=== PATIENT | male | born 1955 | race African-American/Black ===

== ENCOUNTER 2018-12-27 15:04 | Inpatient (IN) | payer OTHER ==
[2018-12-27 15:44] VITALS: BMI 25.2
--- NOTE | 2018-12-27 16:53 | HP ---
COWS - Scale Resting Pulse: 0= [place] 80 or Below Sweatin= Chills/Flushing Restless Observation: 5= Unable to Sit Still Pupil Size: 0= Normal to Room Light Bone or Joint Aches: 1= Mild Discomfort Runny Nose/ Eye Tearin= Runny Nose/Eyes GI Upset > 30mins: 2= Nausea/Diarrhea Tremor Observation: 0= None Yawning Observation: 1= 1-2x During Session Anxiety or Irritability: 2=Irritable/Anxious Goose Flesh Skin: 0=Smooth Skin COWS Score: 14 CIWA Score Nausea/Vomitin Muscle Tremors: 2 Anxiety: 4-Mod. Anxious/Guarded Agitation: 4-Moderately Restless Paroxysmal Sweats: No Perspiration Orientation: 0-Oriented Tacttile Disturbances: 0-None Auditory Disturbances: 0-None Visual Disturbances: 0-None Headache: 0-None Present CIWA-Ar Total Score: 13 - Admission Criteria OASAS Guidelines: Admission for Medically Managed Detox: Requires at least one of the followin. CIWA greater than 12 2. Seizures within the past 24 hours 3. Delirium tremens within the past 24 hours 4. Hallucinations within the past 24 hours 5. Acute intervention needed for co occurring medical disorder 6. Acute intervention needed for co occurring psychiatric disorder 7. Severe withdrawal that cannot be handled at a lower level of care (continued vomiting, continued diarrhea, abnormal vital signs) requiring intravenous medication and/or fluids 8. Admission [facility] Allergies/Adverse Reactions: Allergies Allergy/AdvReac Type Severity Reaction Status Date / Time No Known Allergies Allergy Verified 12/27/18 15:36 History of Present Illness: pt here requesting detox from heroin use , reports 10-15 bags/day since 20 years intermittently , longest sobriety " a few months " after detox , latest use yesterday , claims was referred by [facility] , prior detox x 3 , rehab x once , denies OD, denies IVDU , current symptoms as above. Reports relapse on heroin despite rx meds as below, brought in letter from prescribing MD supporting pt detox and recommendation for rehab . 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 Patient Name: Darian Calhoun Date: 1955 Address: [address] [place] [address] Sex: Male Rx Written Rx Dispensed Drug Quantity Days Supply Prescriber Name 11/29/2018 11/29/2018 buprenorphine-naloxone 8-2 mg sl film 90 30 NidiaFilippo raymundo MD 10/30/2018 10/30/2018 buprenorphine-naloxone 8-2 mg sl film 90 30 NidiaFilippo MD 10/02/2018 10/02/2018 suboxone 8 mg-2 mg sl film 90 30 NidiaFilippo MD 08/31/2018 08/31/2018 suboxone 8 mg-2 mg sl film 90 30 NidiaFilippo raymundo MD 07/31/2018 07/31/2018 suboxone 8 mg-2 mg sl film 90 30 NidiaFilippo MD 06/29/2018 06/29/2018 suboxone 8 mg-2 mg sl film 90 30 NidiaFilippo MD 05/30/2018 05/30/2018 suboxone 8 mg-2 mg sl film 90 30 NidiaFilippo MD 03/30/2018 03/30/2018 suboxone 8 mg-2 mg sl film 90 30 NidiaFilippo raymundo MD 03/01/2018 03/01/2018 suboxone 8 mg-2 mg sl film 90 30 NidiaFilippo raymundo MD 02/02/2018 02/02/2018 suboxone 8 mg-2 mg sl film 90 30 NidiaFilippo MD 01/05/2018 01/05/2018 suboxone 8 mg-2 mg sl film 90 30 NidiaFilippo MD Exam Limitations: Clinical Condition - Ebola screening Have you traveled outside of the country in the last 21 days: No (N) Have you had contact with anyone from an Ebola affected area: No Do you have a fever: No - Review of Systems Constitutional: See HPI, Loss of Appetite EENT: reports: Nose Congestion, Other (myopia) Respiratory: reports: No Symptoms reported Cardiac: reports: No Symptoms Reported GI: reports: See HPI : reports: No Symptoms Reported Musculoskeletal: reports: See HPI, Back Pain Integumentary: reports: No Symptoms Reported Neuro: reports: Headache Endocrine: reports: No Symptoms Reported Psychiatric: reports: Orientated x3, Agitated, Anxious Patient History - Smoking Cessation Smoking history: Current every day smoker Have you smoked in the past 12 months: Yes Initiated information on smoking cessation: No - Substances abused Alcohol Substance route: Oral Frequency: Daily Amount used: RUM- 1PT/ 12 CANS 12OZ BEER Age of first use: 14 Date of last use: 12/26/18 Heroin Substance route: Inhalation Frequency: Daily Amount used: $10BAGS Age of first use: 38 Date of last use: 12/26/18 Family Disease History - Family Disease History Family History: Denies Admission Physical Exam S - Vital Signs Vital Signs: Vital Signs - 24 hr 12/27/18 15:35 Temperature 98.9 F Pulse Rate 50 L Respiratory 18 Rate Blood Pressure 140/80 - Physical General Appearance: Yes: Disheveled, Moderate Distress, Tremorous, Irritable, Anxious HEENTM: Yes: EOMI, Hearing grossly Normal, Normocephalic, Normal Voice, Rhinorrhea Respiratory: Yes: Chest Non-Tender, Lungs Clear, Normal Breath Sounds Neck: Yes: No masses,lesions,Nodules, Trachea in good position Cardiology: Yes: Regular Rhythm, Regular Rate, S1, S2, Bradycardia (reports @ baseline , meds verified w/ pharmacy on record .) Abdominal: Yes: Non Tender, Flat, Soft Back: Yes: Normal Inspection Musculoskeletal: Yes: Gait Steady Extremities: Yes: Non-Tender Neurological: Yes: Fully Oriented, Alert, Motor Strength 5/5 Integumentary: Yes: Warm - Diagnostic (1) Opioid dependence on agonist therapy Current Visit: Yes Status: Acute (2) Opioid dependence Current Visit: Yes Status: Acute Qualifiers: Substance use status: in withdrawal Qualified Code(s): F11.23 - Opioid dependence with withdrawal (3) Alcohol abuse Current Visit: Yes Status: Acute (4) Nicotine use disorder Current Visit: Yes Status: Chronic (5) Cocaine use disorder Current Visit: Yes Status: Chronic Inpatient Rehab Admission - Rehab Decision to Admit Inpatient rehab admission?: No
[2018-12-27] MEDS ORDERED: BISMUTH SUBSALICYLATE 524 MG/30 ML UD PO PRN (17:26)
[2018-12-27] MEDS ORDERED: MENTHOL/PHENOL 1 EACH UD MM PRN (17:26)
[2018-12-27] MEDS ORDERED: MAG HYDROX/AL HYDROX/SIMETH 30 ML UNIT-DOSE CUP PO PRN (17:26)
[2018-12-27] MEDS ORDERED: MAGNESIUM CITRATE 300 ML BOTTLE PO PRN (17:26)
[2018-12-27] MEDS ORDERED: ACETAMINOPHEN 325 MG TABLET (FP) PO PRN (17:26)
[2018-12-27] MEDS ORDERED: MAGNESIUM HYDROX 2400MG/30ML ORAL SUSPENSION 30 ML CUP PO PRN (17:26)
[2018-12-27] MEDS: cloNIDine HCL 0.1 MG TABLET PO PRN (18:28)
[2018-12-27] MEDS ORDERED: METHADONE HCL 10 MG TABLET (FOR DETOX USE ONLY) PO ONE ×2 (18:38→23:00)
[2018-12-27] MEDS: THIAMINE HCL 100 MG TABLET (FP) PO SCH (22:05)
[2018-12-27] MEDS: MELATONIN 5 MG TABLETS PO PRN (22:05)
[2018-12-27] MEDS: chlordiazePOXIDE HCL 25 MG CAPSULE PO SCH (22:05)
[2018-12-27] MEDS: IBUPROFEN 400 MG TABLET (FP) PO PRN (22:06)
[2018-12-27] MEDS: QUINAPRIL HCL 10 MG TABLET (FP) PO SCH (22:37)
[2018-12-28] MEDS: chlordiazePOXIDE HCL 10 MG CAPSULE PO PRN ×2 (02:02→13:30)
[2018-12-28] MEDS: ACETAMINOPHEN 325 MG TABLET (FP) PO PRN ×2 (02:03→12:19)
[2018-12-28] MEDS: chlordiazePOXIDE HCL 25 MG CAPSULE PO SCH ×2 (05:32→12:18)
[2018-12-28] MEDS: cloNIDine HCL 0.1 MG TABLET PO PRN ×2 (05:34→13:28)
[2018-12-28] MEDS: IBUPROFEN 400 MG TABLET (FP) PO PRN ×2 (07:59→13:28)
[2018-12-28] MEDS ORDERED: METHADONE HCL 10 MG TABLET (FOR DETOX USE ONLY) PO ONE (10:00)
[2018-12-28 10:06] LABS: HEMATOCRIT 32.8 % (35.4-49); HEMOGLOBIN 10.5 GM/dL (11.7-16.9); MCH 26.8 pg (25.7-33.7); MCHC 32.1 g/dl (32.0-35.9); MEAN CELL VOLUME 83.6 fl (80-96); MEAN PLT VOLUME 8.8 fl (7.5-11.1); PLATELET COUNT 385 K/MM3 (134-434); RBC 3.93 M/mm3 (4.00-5.60); RDW 15.3 % (11.9-15.9); WHITE BLOOD COUNT 6.4 K/mm3 (4.0-10.0)
[2018-12-28] MEDS: PRENATAL VITAMINS W/ FOLIC ACID TABLET (FP) PO SCH (10:16)
[2018-12-28 10:20] LABS: ALBUMIN 3.7 g/dl (3.4-5.0); BILIRUBIN,TOTAL 0.5 mg/dL (0.2-1); CALCIUM 9.2 mg/dL (8.5-10.1); CREATININE 2.2 mg/dL (0.55-1.3); POTASSIUM 5.2 mmol/L (3.5-5.1); TOT PROT 6.9 g/dl (6.4-8.2)
[2018-12-28] MEDS: QUINAPRIL HCL 10 MG TABLET (FP) PO SCH (12:14)
--- NOTE | 2018-12-28 14:36 | PN ---
[facility] COWS - Scale Resting Pulse: 1= [place] 81-100 Sweatin= Chills/Flushing Restless Observation: 3= Extraneous Movement Pupil Size: 0= Normal to Room Light Bone or Joint Aches: 2= Severe Diffuse Aches Runny Nose/ Eye Tearin= Nasal Congestion GI Upset > 30mins: 1= Stomach Cramp Tremor Observation of Outstretched Hands: 1= Tremor [place], Not Seen Yawning Observation: 0= None Anxiety or Irritability: 1=Feels Anxious/Irritable Goose Flesh Skin: 0=Smooth Skin COWS Score: 11 BHS Progress Note (SOAP) Subjective: pt c/o back pain. States he does not eat red meat not pork, has HTN and wants ensure O: Vital Signs - 24 hr 12/27/18 12/27/18 12/27/18 15:35 18:22 21:45 Temperature 98.9 F 97.9 F 97.8 F Pulse Rate 50 L 47 L 57 L Respiratory 18 18 18 Rate Blood Pressure 140/80 169/85 169/85 12/28/18 12/28/18 12/28/18 00:30 07:04 09:10 Temperature 97.9 F 98.3 F Pulse Rate 50 L 58 L Respiratory 18 20 19 Rate Blood Pressure 173/90 H 152/80 12/28/18 13:34 Temperature 98.4 F Pulse Rate 60 Respiratory 19 Rate Blood Pressure 150/79 pt on quinapril for BP Laboratory Tests 12/28/18 12/28/18 12/28/18 07:00 07:00 07:00 WBC 6.4 RBC 3.93 L Hgb 10.5 L Hct 32.8 L MCV 83.6 MCH 26.8 MCHC 32.1 RDW 15.3 Plt Count 385 MPV 8.8 Sodium 137 Potassium 5.2 H Chloride 106 Carbon Dioxide 27 Anion Gap 4 L BUN 20 H Creatinine 2.2 H Est GFR (CKD-EPI)AfAm 35.13 Est GFR (CKD-EPI)NonAf 30.31 Random Glucose 117 H Calcium 9.2 Total Bilirubin 0.5 AST 26 ALT 30 Alkaline Phosphatase 97 Total Protein 6.9 Albumin 3.7 RPR Titer Nonreactive anemia CRI: GFR 35 a/p: continue methadone detox protocol renal insufficiency high BP
--- NOTE | 2018-12-28 14:42 | EKG ---
Test Reason : Blood Pressure : / mmHG Vent. Rate : 049 BPM Atrial Rate : 049 BPM P-R Int : 140 ms QRS Dur : 088 ms QT Int : 480 ms P-R-T Axes : 082 082 071 degrees QTc Int : 433 ms SINUS BRADYCARDIA WITH PREMATURE ATRIAL COMPLEXES MINIMAL VOLTAGE CRITERIA FOR LVH, MAY BE NORMAL VARIANT NO PREVIOUS ECGS AVAILABLE Confirmed by EVERT CANO MD ([id number]) on 12/28/2018 2:42:26 PM Referred By: TRENT SAENZ Confirmed By:EVERT CANO MD
--- NOTE | 2018-12-28 19:53 | PN ---
[facility] Progress Note Note: Pa Patient c/o of left sided chest pain, reports started two hours ago. Reports has had this pain before, with last episode two days ago, reports drank some gingerale and it relived, was evaluated at [facility] with negative EKG. Patient reports left sided chest pain intermittent 02/20 as gas pain. Denies paresthesia, SOB. Vital Signs Temperature 99 F 12/28/18 17:25 Pulse Rate 49 L 12/28/18 17:25 Respiratory Rate 18 12/28/18 17:25 Blood Pressure 142/80 12/28/18 17:25 O2 Sat by Pulse Oximetry (%) v/s BP 146/85, P50, T98.1 Aox3 no acute distress lungs clear bilaterally, no adventitious breath sounds s1 s2 no JVD full ROM ambulatory Skin intact, no edema or erythema EKG Now: EKG unchanged from previous Sinus bradycardia 50 BPM pr140 qt/qtc 490/466 ASA 81 mg qd Patient reassessed at 8:22pm Patient reports pain improved after drinking gingerarle, reports no pain at this time patient advised to no notify staff if pain returns, patient verbalizes understanding
[2018-12-28] MEDS: ASPIRIN 81 MG CHEWABLE TABLETS PO SCH (20:47)
[2018-12-28] MEDS: THIAMINE HCL 100 MG TABLET (FP) PO SCH (21:20)
[2018-12-28] MEDS: MELATONIN 5 MG TABLETS PO PRN (21:20)
[2018-12-28] MEDS: chlordiazePOXIDE 5 MG CAPSULE PO SCH (21:20)
[2018-12-29] MEDS: cloNIDine HCL 0.1 MG TABLET PO PRN ×3 (00:53→16:51)
[2018-12-29] MEDS: IBUPROFEN 400 MG TABLET (FP) PO PRN ×3 (00:55→18:46)
[2018-12-29] MEDS: hydrOXYzine PAMOATE 50 MG CAPSULE (FP) PO PRN ×2 (02:32→18:46)
[2018-12-29] MEDS: chlordiazePOXIDE 5 MG CAPSULE PO SCH ×2 (04:54→13:11)
[2018-12-29] MEDS: ACETAMINOPHEN 325 MG TABLET (FP) PO PRN ×2 (05:37→22:13)
[2018-12-29] MEDS ORDERED: METHADONE HCL 10 MG TABLET (FOR DETOX USE ONLY) PO ONE (10:00)
[2018-12-29] MEDS: PRENATAL VITAMINS W/ FOLIC ACID TABLET (FP) PO SCH (10:06)
[2018-12-29] MEDS: amLODIPine BESYLATE 10 MG TABLET (FP) PO SCH (10:06)
[2018-12-29] MEDS: ASPIRIN 81 MG CHEWABLE TABLETS PO SCH (10:06)
--- NOTE | 2018-12-29 10:37 | PN ---
[facility] CIWA - CIWA Score Nausea/Vomitin-No Nausea/No Vomiting Muscle Tremors: 2 Anxiety: 2 Agitation: 2 Paroxysmal Sweats: 2 Orientation: 0-Oriented Tacttile Disturbances: 0-None Auditory Disturbances: 0-None Visual Disturbances: 0-None Headache: 2-Mild CIWA-Ar Total Score: 10 BHS COWS - Scale Resting Pulse: 0= [place] 80 or Below Sweatin= Chills/Flushing Restless Observation: 1= Difficult to Sit Still Pupil Size: 0= Normal to Room Light Bone or Joint Aches: 2= Severe Diffuse Aches Runny Nose/ Eye Tearin= None GI Upset > 30mins: 0= None Tremor Observation of Outstretched Hands: 2= Slight Tremor Visible Yawning Observation: 1= 1-2x During Session Anxiety or Irritability: 2=Irritable/Anxious Goose Flesh Skin: 0=Smooth Skin COWS Score: 9 BHS Progress Note (SOAP) Subjective: c/o sweats, anxiety, body aches, headache, tremor, and irritability. Objective: 12/29/18 10:34 Vital Signs 12/29/18 12/29/18 06:00 09:22 Temperature 97.5 F L 98.4 F Pulse Rate 45 L 58 L Respiratory 18 18 Rate Blood Pressure 152/89 152/79 12/29/18 10:34 Laboratory Last Values WBC 6.4 K/mm3 (4.0-10.0) 12/28/18 07:00 RBC 3.93 M/mm3 (4.00-5.60) L 12/28/18 07:00 Hgb 10.5 GM/dL (11.7-16.9) L 12/28/18 07:00 Hct 32.8 % (35.4-49) L 12/28/18 07:00 MCV 83.6 fl (80-96) 12/28/18 07:00 MCH 26.8 pg (25.7-33.7) 12/28/18 07:00 MCHC 32.1 g/dl (32.0-35.9) 12/28/18 07:00 RDW 15.3 % (11.9-15.9) 12/28/18 07:00 Plt Count 385 K/MM3 (134-434) 12/28/18 07:00 MPV 8.8 fl (7.5-11.1) 12/28/18 07:00 Sodium 137 mmol/L (136-145) 12/28/18 07:00 Potassium 5.2 mmol/L (3.5-5.1) H 12/28/18 07:00 Chloride 106 mmol/L (98-107) 12/28/18 07:00 Carbon Dioxide 27 mmol/L (21-32) 12/28/18 07:00 Anion Gap 4 MMOL/L (8-16) L 12/28/18 07:00 BUN 20 mg/dL (7-18) H 12/28/18 07:00 Creatinine 2.2 mg/dL (0.55-1.3) H 12/28/18 07:00 Est GFR (CKD-EPI)AfAm 35.13 12/28/18 07:00 Est GFR (CKD-EPI)NonAf 30.31 12/28/18 07:00 Random Glucose 117 mg/dL (74-106) H 12/28/18 07:00 Calcium 9.2 mg/dL (8.5-10.1) 12/28/18 07:00 Total Bilirubin 0.5 mg/dL (0.2-1) 12/28/18 07:00 AST 26 U/L (15-37) 12/28/18 07:00 ALT 30 U/L (13-61) 12/28/18 07:00 Alkaline Phosphatase 97 U/L (45-117) 12/28/18 07:00 Total Protein 6.9 g/dl (6.4-8.2) 12/28/18 07:00 Albumin 3.7 g/dl (3.4-5.0) 12/28/18 07:00 RPR Titer Nonreactive (NONREACTIVE) 12/28/18 07:00 Labs noted. k+ level is 5.2 12/29/18 10:36 Assessment: 12/29/18 10:35 AOX3, no acute distress full rom, ambulating in the unit. withdrawal symptoms persists. Plan: continue detox incease fluids repeat cmp
--- NOTE | 2018-12-29 12:24 | PN ---
[facility] Progress Note Note: Pt has history of chronic lower back pain. Pt c/o lower back pain unrelieved with ibuprofen and tylenol. Lidoderm patch ordered. Vital Signs 12/29/18 12/29/18 06:00 09:22 Temperature 97.5 F L 98.4 F Pulse Rate 45 L 58 L Respiratory 18 18 Rate Blood Pressure 152/89 152/79 vital signs noted.
[2018-12-29] MEDS: LIDOCAINE 5% TOPICAL PATCH TP SCH (13:12)
[2018-12-29] MEDS: chlordiazePOXIDE HCL 10 MG CAPSULE PO PRN (18:47)
[2018-12-29] MEDS: MELATONIN 5 MG TABLETS PO PRN (22:12)
[2018-12-29] MEDS: THIAMINE HCL 100 MG TABLET (FP) PO SCH (22:12)
[2018-12-29] MEDS: LIDOCAINE PATCH REMOVAL MC SCH (22:12)
[2018-12-29] MEDS: chlordiazePOXIDE HCL 10 MG CAPSULE PO SCH (22:12)
[2018-12-30] MEDS: hydrOXYzine PAMOATE 50 MG CAPSULE (FP) PO PRN (01:28)
[2018-12-30] MEDS: chlordiazePOXIDE HCL 10 MG CAPSULE PO PRN ×2 (01:29→18:07)
[2018-12-30] MEDS: chlordiazePOXIDE HCL 10 MG CAPSULE PO SCH ×3 (05:54→22:03)
[2018-12-30] MEDS: ACETAMINOPHEN 325 MG TABLET (FP) PO PRN (06:13)
[2018-12-30] MEDS ORDERED: METHADONE HCL 10 MG TABLET (FOR DETOX USE ONLY) PO ONE (10:00)
[2018-12-30 10:34] LABS: ALBUMIN 3.2 g/dl (3.4-5.0); BILIRUBIN,TOTAL 0.4 mg/dL (0.2-1); CALCIUM 8.8 mg/dL (8.5-10.1); CREATININE 2.4 mg/dL (0.55-1.3); POTASSIUM 4.4 mmol/L (3.5-5.1); TOT PROT 5.8 g/dl (6.4-8.2)
[2018-12-30] MEDS: ASPIRIN 81 MG CHEWABLE TABLETS PO SCH (10:43)
[2018-12-30] MEDS: LIDOCAINE 5% TOPICAL PATCH TP SCH (10:43)
[2018-12-30] MEDS: amLODIPine BESYLATE 10 MG TABLET (FP) PO SCH (10:43)
[2018-12-30] MEDS: PRENATAL VITAMINS W/ FOLIC ACID TABLET (FP) PO SCH (10:43)
[2018-12-30] MEDS: CYCLOBENZAPRINE HCL 10 MG TABLET (FP) PO PRN ×2 (10:45→18:06)
[2018-12-30] MEDS: IBUPROFEN 400 MG TABLET (FP) PO PRN ×2 (13:17→22:05)
[2018-12-30] MEDS ORDERED: NICOTINE POLACRILEX 2 MG GUM BUC PRN (13:41)
--- NOTE | 2018-12-30 14:52 | PN ---
[facility] CIWA - CIWA Score Nausea/Vomitin-No Nausea/No Vomiting Muscle Tremors: 2 Anxiety: 2 Agitation: 2 Paroxysmal Sweats: 2 Orientation: 0-Oriented Tacttile Disturbances: 0-None Auditory Disturbances: 0-None Visual Disturbances: 0-None Headache: 0-None Present CIWA-Ar Total Score: 8 BHS COWS - Scale Resting Pulse: 0= [place] 80 or Below Sweatin= Chills/Flushing Restless Observation: 0= Sits Still Pupil Size: 0= Normal to Room Light Bone or Joint Aches: 1= Mild Discomfort Runny Nose/ Eye Tearin= Runny Nose/Eyes GI Upset > 30mins: 1= Stomach Cramp Tremor Observation of Outstretched Hands: 2= Slight Tremor Visible Yawning Observation: 0= None Anxiety or Irritability: 1=Feels Anxious/Irritable Goose Flesh Skin: 0=Smooth Skin COWS Score: 8 BHS Progress Note (SOAP) Subjective: Tremor, back pain, interrupted sleep Objective: 12/30/18 14:49 Last Vital Signs Temp Pulse Resp BP Pulse Ox 99.3 F 61 18 149/88 12/30/18 14:20 12/30/18 14:20 12/30/18 14:20 12/30/18 14:20 Elevated b/p (has htn, on med) Laboratory Tests 12/28/18 12/28/18 12/28/18 07:00 07:00 07:00 WBC 6.4 RBC 3.93 L Hgb 10.5 L Hct 32.8 L MCV 83.6 MCH 26.8 MCHC 32.1 RDW 15.3 Plt Count 385 MPV 8.8 Sodium 137 Potassium 5.2 H Chloride 106 Carbon Dioxide 27 Anion Gap 4 L BUN 20 H Creatinine 2.2 H Est GFR (CKD-EPI)AfAm 35.13 Est GFR (CKD-EPI)NonAf 30.31 Random Glucose 117 H Calcium 9.2 Total Bilirubin 0.5 AST 26 ALT 30 Alkaline Phosphatase 97 Total Protein 6.9 Albumin 3.7 RPR Titer Nonreactive 12/30/18 07:50 WBC RBC Hgb Hct MCV MCH MCHC RDW Plt Count MPV Sodium 143 Potassium 4.4 Chloride 109 H Carbon Dioxide 28 Anion Gap 6 L BUN 22 H Creatinine 2.4 H Est GFR (CKD-EPI)AfAm 31.62 Est GFR (CKD-EPI)NonAf 27.28 Random Glucose 93 Calcium 8.8 Total Bilirubin 0.4 AST 13 L ALT 21 Alkaline Phosphatase 102 Total Protein 5.8 L Albumin 3.2 L RPR Titer Labs reviewed: CKD noted Assessment: 12/30/18 14:55 Withdrawal symptoms Noted with CKD Plan: Continue detox CKD: encouraged PO water hydration Follow up with PCP in 1 week for management
[2018-12-30] MEDS: THIAMINE HCL 100 MG TABLET (FP) PO SCH (22:03)
[2018-12-30] MEDS: LIDOCAINE PATCH REMOVAL MC SCH (22:03)
[2018-12-30] MEDS: MELATONIN 5 MG TABLETS PO PRN (22:04)
[2018-12-31] MEDS: ACETAMINOPHEN 325 MG TABLET (FP) PO PRN (01:04)
[2018-12-31] MEDS: hydrOXYzine PAMOATE 50 MG CAPSULE (FP) PO PRN (01:04)
[2018-12-31] MEDS: CYCLOBENZAPRINE HCL 10 MG TABLET (FP) PO PRN (05:45)
[2018-12-31] MEDS ORDERED: METHADONE HCL 5 MG TABLET (FOR DETOX USE ONLY) PO ONE (06:00)
[2018-12-31] MEDS: PRENATAL VITAMINS W/ FOLIC ACID TABLET (FP) PO SCH (10:34)
[2018-12-31] MEDS: LIDOCAINE 5% TOPICAL PATCH TP SCH (10:34)
[2018-12-31] MEDS: amLODIPine BESYLATE 10 MG TABLET (FP) PO SCH (10:34)
[2018-12-31] MEDS: ASPIRIN 81 MG CHEWABLE TABLETS PO SCH (10:34)
--- NOTE | 2018-12-31 11:08 | EKG ---
Test Reason : Blood Pressure : / mmHG Vent. Rate : 050 BPM Atrial Rate : 050 BPM P-R Int : 140 ms QRS Dur : 088 ms QT Int : 490 ms P-R-T Axes : 077 080 067 degrees QTc Int : 446 ms SINUS BRADYCARDIA MINIMAL VOLTAGE CRITERIA FOR LVH, MAY BE NORMAL VARIANT BORDERLINE ECG WHEN COMPARED WITH ECG OF 27-DEC-2018 17:40, PREMATURE ATRIAL COMPLEXES ARE NO LONGER PRESENT Confirmed by CAMDEN FENG, MARI ([id number]) on 12/31/2018 11:07:59 AM Referred By: DONG PARKS Confirmed By:MARI HANNAH MD
[2018-12-31] MEDS ORDERED: TOLNAFTATE 1% CREAM 15 GM TUBE TP SCH (11:45)
--- NOTE | 2018-12-31 14:37 | DS ---
[facility] Detox Discharge Summary Admission Date: 12/27/18 Discharge Date: 12/31/18 - History Present History: Alcohol Dependence, Cocaine Dependence, Opioid Dependence Additional Comments: PATIENT GOING TO [facility] ([facility]) FOR AFTERCARE. PATIENT WAS DISCHARGED FROM DETOX UNIT TO BE TAKEN OVER TO REHAB UNIT IN STABLE MEDICAL CONDITION. Pertinent Past History: HTN, History Of Renal Insufficiency. - Physical Exam Results Vital Signs: Vital Signs Temperature 96.6 F L 12/31/18 09:28 Pulse Rate 57 L 12/31/18 09:28 Respiratory Rate 16 12/31/18 09:28 Blood Pressure 139/71 12/31/18 09:28 O2 Sat by Pulse Oximetry (%) Pertinent Admission Physical Exam Findings: WITHDRAWAL SYMPTOMS. Laboratory Tests 12/28/18 12/28/18 12/28/18 07:00 07:00 07:00 WBC 6.4 RBC 3.93 L Hgb 10.5 L Hct 32.8 L MCV 83.6 MCH 26.8 MCHC 32.1 RDW 15.3 Plt Count 385 MPV 8.8 Sodium 137 Potassium 5.2 H Chloride 106 Carbon Dioxide 27 Anion Gap 4 L BUN 20 H Creatinine 2.2 H Est GFR (CKD-EPI)AfAm 35.13 Est GFR (CKD-EPI)NonAf 30.31 Random Glucose 117 H Calcium 9.2 Total Bilirubin 0.5 AST 26 ALT 30 Alkaline Phosphatase 97 Total Protein 6.9 Albumin 3.7 RPR Titer Nonreactive 12/30/18 07:50 WBC RBC Hgb Hct MCV MCH MCHC RDW Plt Count MPV Sodium 143 Potassium 4.4 Chloride 109 H Carbon Dioxide 28 Anion Gap 6 L BUN 22 H Creatinine 2.4 H Est GFR (CKD-EPI)AfAm 31.62 Est GFR (CKD-EPI)NonAf 27.28 Random Glucose 93 Calcium 8.8 Total Bilirubin 0.4 AST 13 L ALT 21 Alkaline Phosphatase 102 Total Protein 5.8 L Albumin 3.2 L RPR Titer LABS NOTED. - Treatment Hospital Course: Detox Protocol Followed, Detoxed Safely, Responded well, Discharged Condition Good, Rehab Referral Accepted Patient has Accepted a Rehab [facility] - Medication Discharge Medications: Ambulatory Orders Clonidine HCl 0.2 mg PO BID 05/16/19 Quinapril HCl [Accupril -] 10 mg PO BID 12/27/18 - Diagnosis (1) Alcohol abuse Current Visit: Yes Status: Acute (2) Anemia Current Visit: Yes Status: Acute Qualifiers: Anemia type: unspecified type Qualified Code(s): D64.9 - Anemia, unspecified (3) Opioid dependence Current Visit: Yes Status: Acute Qualifiers: Substance use status: in withdrawal Qualified Code(s): F11.23 - Opioid dependence with withdrawal (4) Opioid dependence on agonist therapy Current Visit: Yes Status: Chronic (5) Cocaine use disorder Current Visit: Yes Status: Chronic (6) Nicotine use disorder Current Visit: Yes Status: Chronic - AMA Did Patient Leave Against Medical Advice: No
[2018-12-31] MEDS: IBUPROFEN 400 MG TABLET (FP) PO PRN (15:04)
[2018-12-31 18:08] VITALS: BP 139/81; PULSE 58; TEMP 97.9
== END 2018-12-31 05:50 | disposition other institution (70) | DRG 897 ==
LOC: YASAS 15:04 → Y6N 17:19
PROVIDERS: ADMIT Surgery; ATTEND Surgery
DX: F10.230 Alcohol dependence with withdrawal, uncomplicated (principal); F11.20 Opioid dependence, uncomplicated; F14.20 Cocaine dependence, uncomplicated; I12.9 Hypertensive chronic kidney disease with stage 1 through stage 4 chronic kidney disease, or unspecified chronic kidney disease; N18.3 Chronic kidney disease, stage 3 (moderate); D64.9 Anemia, unspecified; M54.5 Low back pain; G89.29 Other chronic pain; E87.5 Hyperkalemia
CPT/HCPCS: 36415; 71045-TC-FY; 80053; 85027; 86593; 93005; 93010; J0735

== ENCOUNTER 2018-12-31 18:19 | Inpatient (IN) | payer OTHER ==
--- NOTE | 2018-12-31 14:40 | HP ---
[facility] Rehab Assess/Revision - Admission History Admitted to Rehab from: [facility] Date of Admission to Rehab: 12/31/2018 - Vital signs Vital Signs: NOTED; STABLE. - Findings Detox History & Physical reviewed: Yes Concur with findings: Yes Comments/Additional Findings: PATIENT'S MEDICAL / MEDICATION HISTORY REVIEWED PRIOR TO DISCHARGE FROM DETOX UNIT. PATIENT WAS DISCHARGED FROM DETOX UNIT TO BE TAKEN OVER TO REHAB UNIT IN STABLE MEDICAL CONDITION. Inpatient Rehab Admission - Rehab Decision to Admit Inpatient rehab admission?: Yes - Initial Determination Are CD services needed?: Yes Free of communicable disease: Yes Not in need of hospitalization: Yes - Rehab Admission Criteria Previous failed treatment: Yes Poor recovery environment: Yes Comorbidities: Yes Lacks judgement: No Patient is meeting Inpatient Rehab admission criteria:: Yes
[~2018-12-31 18:19] MED LIST: LOPERAMIDE HCL 2 MG CAPSULE PO PRN; MENTHOL/PHENOL 1 EACH UD MM PRN; NICOTINE POLACRILEX 2 MG GUM BUC PRN; guaiFENesin 200 MG/10 ML 10 ML UNIT-DOSE CUPS PO PRN
[2018-12-31] MEDS ORDERED: MELATONIN 5 MG TABLETS PO PRN (22:00)
[2018-12-31] MEDS: THIAMINE HCL 100 MG TABLET (FP) PO SCH (22:06)
[2018-12-31] MEDS: ACETAMINOPHEN 325 MG TABLET (FP) PO PRN (22:07)
--- NOTE | 2019-01-01 09:00 | CONSULT ---
[facility] Psychiatric Consult - Data Date of interview: 01/01/19 Admission source: [facility] Identifying data: Patient is a 63 year old male, , father of six, unemployed, domiciled, and is supported by [facility]. This is patient's first admission to detox at rehab at [facility]. Patient admitted to for opiate and cocaine dependence. Substance Abuse History: - Smoking Cessation. Smoking history: Current every day smoker. Have you smoked in the past 12 months: Yes. Initiated information on smoking cessation: No. - Substances abused. Alcohol. Substance route: Oral. Frequency: Daily. Amount used: RUM- 1PT/ 12 CANS 12OZ BEER. Age of first use: 14. Date of last use: 12/26/18. Heroin. Substance route: Inhalation. Frequency: Daily. Amount used: $10BAGS. Age of first use: 38. Date of last use: 12/26/18 Psychiatric History: Patient denies h/o psychiatric hospitalizations, outpatient care, and suicide attempt. Patient reports stable mood but is experiencing difficulty sleeping. Physical/Sexual Abuse/Trauma History: denies. Mental Status Exam - Mental Status Exam Alert and Oriented to: Time, Place, Person Cognitive Function: Good Patient Appearance: Well Groomed Mood: Euthymic Affect: Appropriate Patient Behavior: Cooperative Speech Pattern: Appropriate Voice Loudness: Normal Thought Process: Goal Oriented Thought Disorder: Not Present Hallucinations: Denies Suicidal Ideation: Denies Homicidal Ideation: Denies Insight/Judgement: Poor Sleep: Poorly Appetite: Fair Muscle strength/Tone: Normal Gait/Station: Normal Psychiatric Findings - Problem List ([place] 1, 2,3) (1) Alcohol use disorder Current Visit: Yes Status: Acute (2) Opioid dependence Current Visit: Yes Status: Acute Qualifiers: Substance use status: in withdrawal Qualified Code(s): F11.23 - Opioid dependence with withdrawal (3) Cocaine use disorder Current Visit: Yes Status: Chronic (4) Nicotine use disorder Current Visit: Yes Status: Chronic (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 Detoxification in progress. Will d/c Melatonin 5mg and order Melatonin 10mg. Benefits and side effects discussed. Verbal consent given.
[2019-01-01] MEDS: PRENATAL VITAMINS W/ FOLIC ACID TABLET (FP) PO SCH (09:27)
[2019-01-01] MEDS: ASPIRIN 81 MG CHEWABLE TABLETS PO SCH (09:27)
[2019-01-01] MEDS: amLODIPine BESYLATE 10 MG TABLET (FP) PO SCH (09:27)
[2019-01-01] MEDS: ACETAMINOPHEN 325 MG TABLET (FP) PO PRN ×2 (09:28→21:56)
[2019-01-01] MEDS: cloNIDine HCL 0.1 MG TABLET PO SCH (11:43)
[2019-01-01] MEDS: MELATONIN 5 MG TABLETS PO PRN (21:55)
[2019-01-01] MEDS: THIAMINE HCL 100 MG TABLET (FP) PO SCH (21:55)
[2019-01-02] MEDS: ACETAMINOPHEN 325 MG TABLET (FP) PO PRN ×2 (02:58→17:13)
[2019-01-02] MEDS ORDERED: PT OWN MED DRAWER 7, Y5N ONE (09:06)
[2019-01-02] MEDS: cloNIDine HCL 0.1 MG TABLET PO SCH (09:34)
[2019-01-02] MEDS: ASPIRIN 81 MG CHEWABLE TABLETS PO SCH (09:34)
[2019-01-02] MEDS: PRENATAL VITAMINS W/ FOLIC ACID TABLET (FP) PO SCH (09:34)
[2019-01-02] MEDS: QUINAPRIL HCL 10 MG TABLET (FP) PO SCH (09:35)
[2019-01-02] MEDS: amLODIPine BESYLATE 10 MG TABLET (FP) PO SCH (09:35)
[2019-01-02] MEDS: LIDOCAINE 5% TOPICAL PATCH TP SCH (12:07)
[2019-01-02] MEDS: CYCLOBENZAPRINE HCL 10 MG TABLET (FP) PO SCH ×2 (14:51→21:54)
[2019-01-02] MEDS: THIAMINE HCL 100 MG TABLET (FP) PO SCH (21:53)
[2019-01-02] MEDS: METHYL SALICYLATE/MENTHOL OINT 30 GM TUBE TP SCH (21:53)
[2019-01-02] MEDS: MELATONIN 5 MG TABLETS PO PRN (21:54)
[2019-01-02] MEDS: LIDOCAINE PATCH REMOVAL MC SCH (22:00)
[2019-01-03] MEDS: ACETAMINOPHEN 325 MG TABLET (FP) PO PRN (00:39)
[2019-01-03] MEDS: CYCLOBENZAPRINE HCL 10 MG TABLET (FP) PO SCH ×3 (06:29→21:25)
[2019-01-03] MEDS: cloNIDine HCL 0.1 MG TABLET PO SCH (09:50)
[2019-01-03] MEDS: amLODIPine BESYLATE 10 MG TABLET (FP) PO SCH (09:50)
[2019-01-03] MEDS: PRENATAL VITAMINS W/ FOLIC ACID TABLET (FP) PO SCH (09:50)
[2019-01-03] MEDS: ASPIRIN 81 MG CHEWABLE TABLETS PO SCH (09:50)
[2019-01-03] MEDS: METHYL SALICYLATE/MENTHOL OINT 30 GM TUBE TP SCH (09:51)
[2019-01-03] MEDS: QUINAPRIL HCL 10 MG TABLET (FP) PO SCH (09:51)
[2019-01-03] MEDS: LIDOCAINE 5% TOPICAL PATCH TP SCH (09:51)
[2019-01-03] MEDS: LIDOCAINE PATCH REMOVAL MC SCH (21:25)
[2019-01-03] MEDS: MELATONIN 5 MG TABLETS PO PRN (21:25)
[2019-01-03] MEDS: THIAMINE HCL 100 MG TABLET (FP) PO SCH (21:25)
[2019-01-04] MEDS: ACETAMINOPHEN 325 MG TABLET (FP) PO PRN ×2 (00:40→23:48)
[2019-01-04] MEDS: CYCLOBENZAPRINE HCL 10 MG TABLET (FP) PO SCH ×3 (06:33→22:01)
[2019-01-04] MEDS: ASPIRIN 81 MG CHEWABLE TABLETS PO SCH (09:58)
[2019-01-04] MEDS: LIDOCAINE 5% TOPICAL PATCH TP SCH (09:58)
[2019-01-04] MEDS: cloNIDine HCL 0.1 MG TABLET PO SCH (09:58)
[2019-01-04] MEDS: PRENATAL VITAMINS W/ FOLIC ACID TABLET (FP) PO SCH (09:58)
[2019-01-04] MEDS: amLODIPine BESYLATE 10 MG TABLET (FP) PO SCH (09:58)
[2019-01-04] MEDS: QUINAPRIL HCL 10 MG TABLET (FP) PO SCH (09:59)
[2019-01-04] MEDS: METHYL SALICYLATE/MENTHOL OINT 30 GM TUBE TP SCH (09:59)
--- NOTE | 2019-01-04 15:43 | PN ---
Psychiatric Progress Note Vital Signs: Vital Signs Period Temp Pulse Resp BP Sys/Horton Pulse Ox Last 24 Hr 97.1 F 56-66 16-18 135-142/80-81 Date of Session: 01/04/19 Chief Complaint:: " I can't sleep through the night." HPI: This is day five of rehab. Patient admitted to [facility] for opiate and cocaine dependence. ROS: Patient is coherent, alert and oriented X3. Current Medications: Active Medications Generic Name Dose Route Start Last Admin Trade Name Freq PRN Reason Stop Dose Admin Acetaminophen 650 mg 12/31/18 14:41 01/04/19 00:40 Tylenol - PO 650 mg Q4H PRN Administration FEVER Amlodipine Besylate 10 mg 01/01/19 10:00 01/04/19 09:58 Norvasc - PO 10 mg DAILY DEJUAN Administration Aspirin 81 mg 01/01/19 10:00 01/04/19 09:58 Asa - PO 81 mg DAILY DEJUAN Administration Clonidine 0.2 mg 01/01/19 11:45 01/04/19 09:58 Catapres - PO 0.2 mg DAILY DEJUAN Administration Cyclobenzaprine HCl 10 mg 01/02/19 14:00 01/04/19 13:36 Flexeril - PO 10 mg TID DEJUAN Administration Eucalyptus/Menthol/Phenol/Sorbitol 1 each 12/31/18 14:41 Cepastat Lozenge - MM Q4H PRN SORE THROAT Guaifenesin 10 ml 12/31/18 14:41 Robitussin - PO Q6H PRN COUGH Lidocaine 1 patch 01/02/19 10:15 01/04/19 09:58 Lidoderm Patch - TP 1 patch DAILY DEJUAN Administration Loperamide HCl 4 mg 12/31/18 14:41 Imodium - PO Q6H PRN DIARRHEA Melatonin 10 mg 01/01/19 22:00 01/03/19 21:25 Melatonin PO 10 mg HS PRN Administration INSOMNIA Methyl Salicylate 1 applic 01/02/19 22:00 01/04/19 09:59 [place]-Curran - TP Not Given DAILY DEJUAN Miscellaneous 1 each 01/02/19 22:00 01/03/19 21:25 Lidoderm Patch Removal MC Not Given DAILY@2200 DEJUAN Nicotine Polacrilex 2 mg 12/31/18 14:41 01/01/19 09:30 Nicorette Gum - BUC 2 mg Q2H PRN Administration NICOTINE REPLACEMENT RX Multivit/Folic Acid/Iron 1 tab 01/01/19 10:00 01/04/19 09:58 Vitamins (Sjr) - PO 1 tab DAILY DEJUAN Administration Quinapril HCl 10 mg 01/02/19 10:00 01/04/19 09:59 Accupril - PO 10 mg DAILY EDJUAN Administration Thiamine HCl 100 mg 12/31/18 22:00 01/03/19 21:25 Vitamin B1 - PO 100 mg HS DEJUAN Administration Medication(s) Change(s): Will order Trazodone 50mg HS. Current Side Effect: No Lab tests ordered: No Lab tests reviewed: Yes Provider note:: Patient reports poor sleep which is unresolved by Melatonin 10mg. Mr. Calhoun reports favorable effects from accepting trazodone 50mg in the past. Patient educated on the importance of sleep hygiene. Will order Trazodone 50mg HS. Patient informed of the risk of priapism. Benefits and side effects discussed. Verbal consent given. Total face to face time:: 20 Mental Status Exam - Mental Status Exam Alert and Oriented to: Time, Place, Person Cognitive Function: Good Patient Appearance: Well Groomed Mood: Euthymic Affect: Mood Congruent Patient Behavior: Cooperative Speech Pattern: Appropriate Voice Loudness: Normal Thought Process: Goal Oriented Thought Disorder: Not Present Hallucinations: Denies Suicidal Ideation: Denies Homicidal Ideation: Denies Insight/Judgement: Poor Sleep: Poorly Appetite: Fair Muscle strength/Tone: Normal Gait/Station: Normal Psychiatric Treatment Plan - Problem List (1) Alcohol use disorder Current Visit: Yes (2) Opioid dependence Current Visit: Yes Qualifiers: Substance use status: in withdrawal Qualified Code(s): F11.23 - Opioid dependence with withdrawal (3) Cocaine use disorder Current Visit: Yes (4) Nicotine use disorder Current Visit: Yes (5) Substance-induced sleep disorder Current Visit: Yes
[2019-01-04] MEDS: THIAMINE HCL 100 MG TABLET (FP) PO SCH (22:01)
[2019-01-04] MEDS: MELATONIN 5 MG TABLETS PO PRN (22:01)
[2019-01-04] MEDS: traZODone HCL 50 MG TABLET (FP) PO SCH (22:01)
[2019-01-04] MEDS: LIDOCAINE PATCH REMOVAL MC SCH (22:03)
[2019-01-05] MEDS ORDERED: traZODone HCL 50 MG TABLET (FP) PO ONE (02:04)
[2019-01-05] MEDS: CYCLOBENZAPRINE HCL 10 MG TABLET (FP) PO SCH ×3 (06:16→21:10)
[2019-01-05] MEDS ORDERED: PT OWN MED DRAWER 7, Y5N ONE ×2 (08:42→10:44)
[2019-01-05] MEDS: ASPIRIN 81 MG CHEWABLE TABLETS PO SCH (10:09)
[2019-01-05] MEDS: amLODIPine BESYLATE 10 MG TABLET (FP) PO SCH (10:09)
[2019-01-05] MEDS: LIDOCAINE 5% TOPICAL PATCH TP SCH (10:09)
[2019-01-05] MEDS: cloNIDine HCL 0.1 MG TABLET PO SCH (10:09)
[2019-01-05] MEDS: METHYL SALICYLATE/MENTHOL OINT 30 GM TUBE TP SCH (10:09)
[2019-01-05] MEDS: PRENATAL VITAMINS W/ FOLIC ACID TABLET (FP) PO SCH (10:09)
[2019-01-05] MEDS: QUINAPRIL HCL 10 MG TABLET (FP) PO SCH (10:10)
[2019-01-05] MEDS: traZODone HCL 50 MG TABLET (FP) PO SCH (21:10)
[2019-01-05] MEDS: THIAMINE HCL 100 MG TABLET (FP) PO SCH (21:10)
[2019-01-05] MEDS: MELATONIN 5 MG TABLETS PO PRN (21:11)
[2019-01-05] MEDS: LIDOCAINE PATCH REMOVAL MC SCH (22:25)
[2019-01-06] MEDS: ACETAMINOPHEN 325 MG TABLET (FP) PO PRN (00:32)
[2019-01-06] MEDS: CYCLOBENZAPRINE HCL 10 MG TABLET (FP) PO SCH ×3 (06:07→22:01)
[2019-01-06] MEDS: cloNIDine HCL 0.1 MG TABLET PO SCH (09:39)
[2019-01-06] MEDS: LIDOCAINE 5% TOPICAL PATCH TP SCH (09:39)
[2019-01-06] MEDS: ASPIRIN 81 MG CHEWABLE TABLETS PO SCH (09:39)
[2019-01-06] MEDS: PRENATAL VITAMINS W/ FOLIC ACID TABLET (FP) PO SCH (09:39)
[2019-01-06] MEDS: amLODIPine BESYLATE 10 MG TABLET (FP) PO SCH (09:39)
[2019-01-06] MEDS: METHYL SALICYLATE/MENTHOL OINT 30 GM TUBE TP SCH (09:39)
[2019-01-06] MEDS: QUINAPRIL HCL 10 MG TABLET (FP) PO SCH (09:41)
--- NOTE | 2019-01-06 14:50 | PN ---
[facility] Progress Note Note: Patient reports sleeping poorly despite taking Melatonin 10 mg/hs and Trazadone 50 mg/hs. Requests increase in Trazadone dosage to 100 mg/hs. Trazadone will be increased to 100 mg/hs
[2019-01-06] MEDS: MAGNESIUM HYDROX 2400MG/30ML ORAL SUSPENSION 30 ML CUP PO PRN (17:36)
[2019-01-06] MEDS: traZODone HCL 50 MG TABLET (FP) PO SCH (22:01)
[2019-01-06] MEDS: THIAMINE HCL 100 MG TABLET (FP) PO SCH (22:01)
[2019-01-06] MEDS: MELATONIN 5 MG TABLETS PO PRN (22:01)
[2019-01-06] MEDS: LIDOCAINE PATCH REMOVAL MC SCH (22:02)
[2019-01-07] MEDS: ACETAMINOPHEN 325 MG TABLET (FP) PO PRN (04:02)
[2019-01-07] MEDS: CYCLOBENZAPRINE HCL 10 MG TABLET (FP) PO SCH ×3 (06:27→21:17)
[2019-01-07] MEDS ORDERED: PT OWN MED DRAWER 7, Y5N ONE ×3 (08:59→21:57)
[2019-01-07] MEDS: cloNIDine HCL 0.1 MG TABLET PO SCH (10:03)
[2019-01-07] MEDS: amLODIPine BESYLATE 10 MG TABLET (FP) PO SCH (10:03)
[2019-01-07] MEDS: QUINAPRIL HCL 10 MG TABLET (FP) PO SCH (10:04)
[2019-01-07] MEDS: ASPIRIN 81 MG CHEWABLE TABLETS PO SCH (10:04)
[2019-01-07] MEDS: LIDOCAINE 5% TOPICAL PATCH TP SCH (10:04)
[2019-01-07] MEDS: PRENATAL VITAMINS W/ FOLIC ACID TABLET (FP) PO SCH (10:04)
[2019-01-07] MEDS: METHYL SALICYLATE/MENTHOL OINT 30 GM TUBE TP SCH (10:05)
[2019-01-07] MEDS: MAGNESIUM CITRATE 300 ML BOTTLE PO PRN (12:34)
[2019-01-07] MEDS ORDERED: POLYETHYLENE GLYCOL 3350 119 GM BTL PO ONE ×3 (20:12→22:00)
[2019-01-07] MEDS: THIAMINE HCL 100 MG TABLET (FP) PO SCH (21:16)
[2019-01-07] MEDS: traZODone HCL 50 MG TABLET (FP) PO SCH (21:16)
[2019-01-07] MEDS: MELATONIN 5 MG TABLETS PO PRN (21:17)
[2019-01-07] MEDS: LIDOCAINE PATCH REMOVAL MC SCH (21:48)
[2019-01-08] MEDS: ACETAMINOPHEN 325 MG TABLET (FP) PO PRN (02:07)
[2019-01-08] MEDS: CYCLOBENZAPRINE HCL 10 MG TABLET (FP) PO SCH ×3 (06:13→21:43)
--- NOTE | 2019-01-08 08:01 | PN ---
S Progress Note Note: Patient complains of sleeping poorly despite taking Trazadone 100 mg/hs. Requests that Trazadone dosage be increased to 150 mg/hs.
[2019-01-08] MEDS: PRENATAL VITAMINS W/ FOLIC ACID TABLET (FP) PO SCH (09:51)
[2019-01-08] MEDS: cloNIDine HCL 0.1 MG TABLET PO SCH (09:51)
[2019-01-08] MEDS: QUINAPRIL HCL 10 MG TABLET (FP) PO SCH (09:52)
[2019-01-08] MEDS: ASPIRIN 81 MG CHEWABLE TABLETS PO SCH (09:52)
[2019-01-08] MEDS: LIDOCAINE 5% TOPICAL PATCH TP SCH (09:52)
[2019-01-08] MEDS: amLODIPine BESYLATE 10 MG TABLET (FP) PO SCH (09:53)
[2019-01-08] MEDS: METHYL SALICYLATE/MENTHOL OINT 30 GM TUBE TP SCH (09:53)
[2019-01-08] MEDS: SENNOSIDES 8.6MG TABLET (FP) PO PRN (18:13)
[2019-01-08] MEDS: THIAMINE HCL 100 MG TABLET (FP) PO SCH (21:42)
[2019-01-08] MEDS: traZODone HCL 50 MG TABLET (FP) PO SCH (21:43)
[2019-01-08] MEDS: MELATONIN 5 MG TABLETS PO PRN (21:43)
[2019-01-08] MEDS: LIDOCAINE PATCH REMOVAL MC SCH (21:59)
[2019-01-09] MEDS: CYCLOBENZAPRINE HCL 10 MG TABLET (FP) PO SCH ×3 (06:04→21:06)
[2019-01-09] MEDS: PRENATAL VITAMINS W/ FOLIC ACID TABLET (FP) PO SCH (09:27)
[2019-01-09] MEDS: ASPIRIN 81 MG CHEWABLE TABLETS PO SCH (09:27)
[2019-01-09] MEDS: QUINAPRIL HCL 10 MG TABLET (FP) PO SCH (09:27)
[2019-01-09] MEDS: cloNIDine HCL 0.1 MG TABLET PO SCH (09:28)
[2019-01-09] MEDS: amLODIPine BESYLATE 10 MG TABLET (FP) PO SCH (09:28)
[2019-01-09] MEDS: LIDOCAINE 5% TOPICAL PATCH TP SCH (09:28)
[2019-01-09] MEDS: MAGNESIUM CITRATE 300 ML BOTTLE PO PRN (09:34)
[2019-01-09] MEDS: METHYL SALICYLATE/MENTHOL OINT 30 GM TUBE TP SCH (10:23)
[2019-01-09] MEDS ORDERED: SODIUM PHOSPHATE/NA BIPHOS 133 ML ENEMA PR ONE (14:15)
[2019-01-09] MEDS: SENNOSIDES 8.6MG TABLET (FP) PO PRN (19:22)
[2019-01-09] MEDS: THIAMINE HCL 100 MG TABLET (FP) PO SCH (21:05)
[2019-01-09] MEDS: LIDOCAINE PATCH REMOVAL MC SCH (21:06)
[2019-01-09] MEDS: traZODone HCL 50 MG TABLET (FP) PO SCH (21:06)
[2019-01-09] MEDS: MELATONIN 5 MG TABLETS PO PRN (21:06)
[2019-01-10] MEDS: CYCLOBENZAPRINE HCL 10 MG TABLET (FP) PO SCH ×3 (05:24→21:39)
[2019-01-10] MEDS: ACETAMINOPHEN 325 MG TABLET (FP) PO PRN (05:24)
[2019-01-10] MEDS: amLODIPine BESYLATE 10 MG TABLET (FP) PO SCH (09:31)
[2019-01-10] MEDS: LIDOCAINE 5% TOPICAL PATCH TP SCH (09:31)
[2019-01-10] MEDS: cloNIDine HCL 0.1 MG TABLET PO SCH (09:31)
[2019-01-10] MEDS: PRENATAL VITAMINS W/ FOLIC ACID TABLET (FP) PO SCH (09:31)
[2019-01-10] MEDS: QUINAPRIL HCL 10 MG TABLET (FP) PO SCH (09:31)
[2019-01-10] MEDS: ASPIRIN 81 MG CHEWABLE TABLETS PO SCH (09:31)
[2019-01-10] MEDS: METHYL SALICYLATE/MENTHOL OINT 30 GM TUBE TP SCH (09:32)
--- NOTE | 2019-01-10 12:39 | PN ---
S Progress Note (SOAP) Subjective: Patient c/o constipation. Enema ordered yesterday, but he did not use the all of it. Told this provider he had a small BM. Today, continues to c/o constipation. No appetite. Objective: BS+, abd soft, non-tender, slightly distended. Assessment: Constipation Plan: Will order colace and enema
[2019-01-10] MEDS ORDERED: MINERAL OIL ENEMA 133 ML ENEMA PR ONE (13:30)
[2019-01-10] MEDS: THIAMINE HCL 100 MG TABLET (FP) PO SCH (21:39)
[2019-01-10] MEDS: DOCUSATE SODIUM 100 MG CAPSULE (FP) PO SCH (21:39)
[2019-01-10] MEDS: traZODone HCL 50 MG TABLET (FP) PO SCH (21:39)
[2019-01-10] MEDS: MELATONIN 5 MG TABLETS PO PRN (21:39)
[2019-01-10] MEDS: LIDOCAINE PATCH REMOVAL MC SCH (21:40)
[2019-01-11] MEDS: ACETAMINOPHEN 325 MG TABLET (FP) PO PRN (02:37)
[2019-01-11] MEDS: CYCLOBENZAPRINE HCL 10 MG TABLET (FP) PO SCH ×3 (06:05→21:04)
[2019-01-11] MEDS: PRENATAL VITAMINS W/ FOLIC ACID TABLET (FP) PO SCH (09:28)
[2019-01-11] MEDS: ASPIRIN 81 MG CHEWABLE TABLETS PO SCH (09:28)
[2019-01-11] MEDS: amLODIPine BESYLATE 10 MG TABLET (FP) PO SCH (09:28)
[2019-01-11] MEDS: METHYL SALICYLATE/MENTHOL OINT 30 GM TUBE TP SCH (09:29)
[2019-01-11] MEDS: cloNIDine HCL 0.1 MG TABLET PO SCH (09:29)
[2019-01-11] MEDS: QUINAPRIL HCL 10 MG TABLET (FP) PO SCH (09:29)
[2019-01-11] MEDS: LIDOCAINE 5% TOPICAL PATCH TP SCH (09:29)
[2019-01-11] MEDS: THIAMINE HCL 100 MG TABLET (FP) PO SCH (21:04)
[2019-01-11] MEDS: MELATONIN 5 MG TABLETS PO PRN (21:04)
[2019-01-11] MEDS: DOCUSATE SODIUM 100 MG CAPSULE (FP) PO SCH (21:04)
[2019-01-11] MEDS: traZODone HCL 50 MG TABLET (FP) PO SCH (21:04)
[2019-01-11] MEDS: LIDOCAINE PATCH REMOVAL MC SCH (21:05)
[2019-01-12] MEDS: ACETAMINOPHEN 325 MG TABLET (FP) PO PRN ×2 (02:55→22:37)
[2019-01-12] MEDS: CYCLOBENZAPRINE HCL 10 MG TABLET (FP) PO SCH ×3 (06:07→21:38)
[2019-01-12] MEDS: MAGNESIUM HYDROX 2400MG/30ML ORAL SUSPENSION 30 ML CUP PO PRN (08:51)
[2019-01-12] MEDS: ASPIRIN 81 MG CHEWABLE TABLETS PO SCH (09:24)
[2019-01-12] MEDS: QUINAPRIL HCL 10 MG TABLET (FP) PO SCH (09:24)
[2019-01-12] MEDS: METHYL SALICYLATE/MENTHOL OINT 30 GM TUBE TP SCH (09:25)
[2019-01-12] MEDS: PRENATAL VITAMINS W/ FOLIC ACID TABLET (FP) PO SCH (09:25)
[2019-01-12] MEDS: cloNIDine HCL 0.1 MG TABLET PO SCH (09:25)
[2019-01-12] MEDS: LIDOCAINE 5% TOPICAL PATCH TP SCH (09:25)
[2019-01-12] MEDS: amLODIPine BESYLATE 10 MG TABLET (FP) PO SCH (09:25)
[2019-01-12] MEDS: THIAMINE HCL 100 MG TABLET (FP) PO SCH (21:37)
[2019-01-12] MEDS: DOCUSATE SODIUM 100 MG CAPSULE (FP) PO SCH (21:37)
[2019-01-12] MEDS: traZODone HCL 50 MG TABLET (FP) PO SCH (21:37)
[2019-01-12] MEDS: LIDOCAINE PATCH REMOVAL MC SCH (21:38)
[2019-01-12] MEDS: MELATONIN 5 MG TABLETS PO PRN (21:38)
[2019-01-13] MEDS: ACETAMINOPHEN 325 MG TABLET (FP) PO PRN (06:17)
[2019-01-13] MEDS: CYCLOBENZAPRINE HCL 10 MG TABLET (FP) PO SCH (06:17)
[2019-01-13 07:03] VITALS: BP 126/99; PULSE 93; TEMP 98.4
[2019-01-13] MEDS: PRENATAL VITAMINS W/ FOLIC ACID TABLET (FP) PO SCH (09:25)
[2019-01-13] MEDS: QUINAPRIL HCL 10 MG TABLET (FP) PO SCH (09:25)
[2019-01-13] MEDS: ASPIRIN 81 MG CHEWABLE TABLETS PO SCH (09:25)
[2019-01-13] MEDS: METHYL SALICYLATE/MENTHOL OINT 30 GM TUBE TP SCH (09:25)
[2019-01-13] MEDS: LIDOCAINE 5% TOPICAL PATCH TP SCH (09:25)
[2019-01-13] MEDS: amLODIPine BESYLATE 10 MG TABLET (FP) PO SCH (09:25)
[2019-01-13] MEDS: cloNIDine HCL 0.1 MG TABLET PO SCH (09:25)
== END 2019-01-13 10:08 | disposition home or self-care (01) | DRG 895 ==
LOC: YASAS 18:19 → Y3W 18:21
PROVIDERS: ADMIT Neuromusculoskeletal Medicine & OMM; ATTEND Neuromusculoskeletal Medicine & OMM
PROC: HZ42ZZZ Group Counseling for Substance Abuse Treatment, Cognitive-Behavioral (ICD-10-PCS; principal; 2018-12-31)
DX: F11.20 Opioid dependence, uncomplicated (principal); F14.20 Cocaine dependence, uncomplicated; F19.282 Other psychoactive substance dependence with psychoactive substance-induced sleep disorder; F17.210 Nicotine dependence, cigarettes, uncomplicated
CPT/HCPCS: J0735

== ENCOUNTER 2023-12-01 19:24 | Inpatient (IN) | payer OTHER ==
[2023-12-01 20:01] VITALS: BMI 18.6
[2023-12-01] MEDS ORDERED: guaiFENesin 600 MG TABLET.ER (FP) PO PRN (21:16)
[2023-12-01] MEDS ORDERED: LOPERAMIDE HCL 2 MG CAPSULE PO PRN (21:16)
[2023-12-01] MEDS ORDERED: ACETAMINOPHEN 325 MG TABLET (FP) PO PRN (21:16)
[2023-12-01] MEDS ORDERED: POLYETHYLENE GLYCOL (HEALTHYLAX) 3350 17 GM PACKET PO PRN (21:16)
[2023-12-01] MEDS ORDERED: NALOXONE HCL 0.4 MG/ML VIAL IM PRN (21:16)
[2023-12-01] MEDS ORDERED: P-EPHED 60MG/TRIPROLIDI 2.5MG TABLET PO PRN (21:16)
[2023-12-01] MEDS ORDERED: MAG HYDROX/AL HYDROX/SIMETH 30 ML UNIT-DOSE CUP PO PRN (21:16)
[2023-12-01] MEDS ORDERED: BENZOCAINE/MENTHOL (CHLORASEPTIC ) LOZENGE MM PRN (21:16)
[2023-12-01] MEDS ORDERED: NALOXONE HCL (KLOXXADO) 8 MG SPRAY NS PRN (21:16)
[2023-12-01] MEDS ORDERED: IBUPROFEN 400 MG TABLET (FP) PO PRN (21:16)
[2023-12-01] MEDS ORDERED: MAGNESIUM HYDROX 2400MG/30ML ORAL SUSPENSION 30 ML CUP PO PRN (21:16)
[2023-12-01] MEDS ORDERED: BISMUTH SUBSALICYLATE 524 MG/30 ML PO PRN (21:16)
[2023-12-01] MEDS ORDERED: ONDANSETRON *ODT* 4 MG TABLET SL PRN (21:16)
[2023-12-01] MEDS ORDERED: BENZONATATE 200 MG CAPSULE PO PRN (21:16)
[2023-12-01] MEDS ORDERED: MELATONIN 5 MG TABLETS ONE (22:00)
[2023-12-01] MEDS: MELATONIN 5 MG TABLETS PO SCH (22:02)
[2023-12-01] MEDS: THIAMINE 100 MG TABLET PO SCH (22:02)
[2023-12-02] MEDS: PRENATAL VITAMINS W/ FOLIC ACID TABLET (FP) PO SCH (10:56)
[2023-12-02 11:56] LABS: HEMATOCRIT 29.8 % (35.4-49); HEMOGLOBIN 9.4 GM/dL (11.7-16.9); MCHC 31.7 g/dl (32.0-35.9); MEAN CELL VOLUME 85.1 fl (80-96); MEAN PLT VOLUME 9.5 fl (7.5-11.1); PLATELET COUNT 508 10^3/uL (134-434); WHITE BLOOD COUNT 9.5 K/mm3 (4.0-10.0)
[2023-12-02 12:17] LABS: ALBUMIN 3.4 g/dl (3.4-5.0); BLOOD UREA NITROGEN 31.8 mg/dL (7-18); CALCIUM 8.9 mg/dL (8.5-10.1); CREATININE 4.2 mg/dL (0.55-1.3); POTASSIUM 4.6 mmol/L (3.5-5.1); TOT PROT 7.1 g/dl (6.4-8.2)
[2023-12-03] MEDS: amLODIPine BESYLATE 10 MG TABLET (FP) PO SCH (10:29)
[2023-12-03] MEDS: PANTOPRAZOLE 40 MG TABLET PO SCH (10:29)
[2023-12-03] MEDS: methaDONE HCL 10 MG TABLET (FOR DETOX USE ONLY) PO ONE (12:05)
[2023-12-03] MEDS: IBUPROFEN 600 MG TABLET (FP) PO PRN (15:04)
[2023-12-03] MEDS: cloNIDine HCL 0.1 MG TABLET PO SCH (22:13)
[2023-12-03] MEDS: hydrALAZINE HCL 25 MG TABLET (FP) PO SCH (22:13)
[2023-12-03] MEDS: traZODone HCL 50 MG TABLET (FP) PO SCH (22:14)
[2023-12-05] MEDS: methaDONE HCL 10 MG TABLET (FOR DETOX USE ONLY) PO ONE (05:54)
[2023-12-05] MEDS: FAMOTIDINE 10 MG TABLET PO SCH (09:30)
[2023-12-06 09:10] VITALS: BP 104/61; PULSE 63; RESP 18; TEMP 98.1
== END 2023-12-06 10:01 | disposition home or self-care (01) | DRG 897 ==
LOC: YASAS 19:24 → Y6N 23:18
PROVIDERS: ADMIT Allergy & Immunology; ATTEND Surgery
PROC: HZ2ZZZZ Detoxification Services for Substance Abuse Treatment (ICD-10-PCS; principal; 2023-12-01)
DX: F11.23 Opioid dependence with withdrawal (principal); F19.282 Other psychoactive substance dependence with psychoactive substance-induced sleep disorder; F12.10 Cannabis abuse, uncomplicated; F32.A Depression, unspecified; D64.9 Anemia, unspecified; I12.9 Hypertensive chronic kidney disease with stage 1 through stage 4 chronic kidney disease, or unspecified chronic kidney disease; N18.30 Chronic kidney disease, stage 3 unspecified; Z87.891 Personal history of nicotine dependence; Z28.310 Unvaccinated for COVID-19; Z28.9 Immunization not carried out for unspecified reason
CPT/HCPCS: 36415; 71045-TC-FY; 80053; 85027; 86780; 93005; 93010